=== PATIENT | male | born 1990 | race Caucasian/White ===

== ENCOUNTER 2016-10-01 14:07 | Emergency (ER) | payer SELFPAY ==
[2016-10-01] MEDS ORDERED: Ibuprofen 400 MG Tab PO ONE (14:51)
[2016-10-01 16:59] VITALS: BP 113/61
--- NOTE | 2016-10-01 16:59 | EDM.PDOC ---
ED HPI GENERAL MEDICAL PROBLEM - General Chief Complaint: ENT Problem Stated Complaint: ? STRP THROAT Time Seen by Provider: 10/01/16 14:52 Source of Information: Reports: Patient, RN Notes Reviewed History Limitations: Reports: No Limitations - History of Present Illness INITIAL COMMENTS - FREE TEXT/NARRATIVE: Patient with onset of sore throat 3 days ago with fever and chills with nausea. Positive strep contact. Location: Reports: Other (throat) Quality: Reports: Ache Severity: Severe Improves with: Reports: None Worsens with: Reports: None Associated Symptoms: Reports: No Other Symptoms Throat Pain Score (Numeric/FACES): 5 - Related Data Allergies Allergy/AdvReac Type Severity Reaction Status Date / Time No Known Allergies Allergy Verified 10/01/16 16:57 Home Meds: Home Meds . [No Known Home Meds] 07/11/14 [History] Social & Family History - Tobacco Use Smoking Status *Q: Light Tobacco Smoker Years of Tobacco use: 3 - Alcohol Use Days Per Week of Alcohol Use: 5 Number of Drinks Per Day: 3 Total Drinks Per Week: 15 - Recreational Drug Use Recreational Drug Use: No ED ROS ENT - Review of Systems Review Of Systems: ROS reveals no pertinent complaints other than HPI. ED EXAM, ENT - Physical Exam Exam: See Below Exam Limited By: No Limitations General Appearance: Alert, WD/WN, No Apparent Distress Eye Exam: Bilateral Eye: Normal Inspection Ears: Normal External Exam, Normal Canal, Hearing Grossly Normal, Normal TMs Nose: Normal Inspection, Normal Mucousa, No Blood Mouth/Throat: Other (pharyngeal erythema with mild tonsillar swelling.) Head: Atraumatic, Normocephalic Neck: Full Range of Motion, Other (Shoddy upper anterior LAD. No nuchal rigidity. ) Respiratory/Chest: No Respiratory Distress, Lungs Clear, Normal Breath Sounds, No Accessory Muscle Use, Chest Non-Tender Cardiovascular: Normal Peripheral Pulses, Regular Rate, Rhythm, No Edema, No Gallop, No JVD, No Murmur, No Rub Back: Normal Inspection, Full Range of Motion Extremities: Normal Inspection, Normal Range of Motion, Non-Tender, No Pedal Edema, Normal Capillary Refill Neurological: Alert, Oriented, CN II-XII Intact, Normal Cognition, Normal Gait, Normal Reflexes, No Motor/Sensory Deficits Psychiatric: Normal Affect, Normal Mood Skin: Warm, Dry, Intact, Normal Color, No Rash Course - Vital Signs Last Recorded V/S: Last Vital Signs Temp 36.7 C 10/01/16 15:45 Pulse 104 H 10/01/16 15:45 Resp 16 10/01/16 15:45 BP 113/61 10/01/16 15:45 Pulse Ox 100 10/01/16 15:45 - Orders/Labs/Meds Orders: Active Orders 24 hr Category Date Time Status CULTURE STREP A CONFIRMATION [RM] Stat Lab 10/01/16 14:52 Results STREP SCRN A RAPID W CULT CONF [RM] Stat Lab 10/01/16 14:52 Results Meds: Medications Discontinued Medications Generic Name Dose Route Start Last Admin Trade Name Christiano PRN Reason Stop Dose Admin Ibuprofen 400 mg 10/01/16 14:51 10/01/16 14:55 Motrin PO 10/01/16 14:52 400 mg ONETIME ONE Administration Rapid strep: Negative. Departure - Departure Time of Disposition: 17:06 Disposition: Home, Self-Care 01 Condition: Good Clinical Impression: Strep throat exposure Pharyngitis Qualifiers: Pharyngitis/tonsillitis etiology: streptococcus Qualified Code(s): J02.0 - Streptococcal pharyngitis - Discharge Information Instructions: Strep Throat, [id number] Forms: ED Department Discharge Additional Instructions: RX: Amoxicillin 500mg. RX: Decadron 4mg. RX: Phenergan 25mg. Follow up in clinic if not improved in 3 days. - My Orders Last 24 Hours: My Active Orders 10/01/16 14:52 CULTURE STREP A CONFIRMATION [RM] Stat STREP SCRN A RAPID W CULT CONF [RM] Stat - Assessment/Plan Last 24 Hours: My Active Orders 10/01/16 14:52 CULTURE STREP A CONFIRMATION [RM] Stat STREP SCRN A RAPID W CULT CONF [RM] Stat
== END 2016-10-01 17:40 | disposition home or self-care (01) ==
LOC: DL.ED 14:07
DX: J02.0 Streptococcal pharyngitis (principal); F17.210 Nicotine dependence, cigarettes, uncomplicated
CPT/HCPCS: 87081; 87430; 99283; A9270

== ENCOUNTER 2019-08-30 09:39 | Emergency (ER) | payer SELFPAY ==
[2019-08-30 09:52] VITALS: BP 131/71; PULSE 93
--- NOTE | 2019-08-30 10:12 | EDM.PDOC ---
Scribed by Vivi Gibbons 08/30/19 0954 for Gregor Orellana MD ED HPI GENERAL MEDICAL PROBLEM - General Chief Complaint: Skin Complaint Stated Complaint: SKIN RASH LEGS, TORSO, ARMS Time Seen by Provider: 08/30/19 09:45 Source of Information: Reports: Patient, RN, RN Notes Reviewed History Limitations: Reports: No Limitations - History of Present Illness INITIAL COMMENTS - FREE TEXT/NARRATIVE: Patient presents to ED by POV with complaint of rash on bilateral lower legs that started approximately 2 weeks ago. It has continued to get worse up on the trunk and bilateral upper arms. Patient has used OTC hydrocortisone cream for temporary relief of itching. Onset: Gradual Duration: Getting Worse Location: Reports: Generalized Severity: Mild Improves with: Reports: None Worsens with: Reports: None Associated Symptoms: Reports: No Other Symptoms Treatments [employer]: Reports: Other (see below) (hydrocortisone cream) - Related Data Allergies Allergy/AdvReac Type Severity Reaction Status Date / Time No Known Allergies Allergy Verified 08/30/19 09:45 Home Meds: Home Meds . [No Known Home Meds] 07/11/14 [History] Past Medical History - Past Health History Medical/Surgical History: Denies Medical/Surgical History Social & Family History - Caffeine Use Caffeine Use: Reports: Coffee ED ROS GENERAL - Review of Systems Review Of Systems: Comprehensive ROS is negative, except as noted in HPI. ED EXAM, SKIN/RASH Exam: See Below Exam Limited By: No Limitations General Appearance: Alert, WD/WN, No Apparent Distress Nose: Normal Inspection Throat/Mouth: Normal Inspection, Normal Lips, Normal Voice, No Airway Compromise Head: Atraumatic, Normocephalic Neck: Normal Inspection, Supple, Non-Tender, Full Range of Motion. No: Lymphadenopathy (L), Lymphadenopathy (R) Respiratory/Chest: No Respiratory Distress, Lungs Clear, Normal Breath Sounds, No Accessory Muscle Use, Chest Non-Tender Cardiovascular: Regular Rate, Rhythm, No Edema GI/Abdominal: Normal Bowel Sounds, Soft, Non-Tender, No Organomegaly Back Exam: Normal Inspection Extremities: Normal Range of Motion, Non-Tender, No Pedal Edema, Normal Capillary Refill Neurological: Alert, Oriented, No Motor/Sensory Deficits Psychiatric: Normal Affect, Normal Mood Skin: Warm, Dry, Rash (Patchy blanching erythematous rash to B/L lower legs with well defined borders, rough rash of tiny red dots to torso.) Course - Vital Signs Last Recorded V/S: Last Vital Signs Temp 98.4 F 08/30/19 09:52 Pulse 93 08/30/19 09:52 Resp 16 08/30/19 09:52 BP 131/71 08/30/19 09:52 Pulse Ox 100 08/30/19 09:52 - Orders/Labs/Meds Orders: Active Orders 24 hr Category Date Time Status CULTURE STREP A CONFIRMATION [RM] Stat Lab 08/30/19 09:49 Results STREP SCRN A RAPID W CULT CONF [RM] Stat Lab 08/30/19 09:49 Results Labs: Rapid strep: Negative. Departure - Departure Time of Disposition: 10:09 Disposition: Home, Self-Care 01 Condition: Good Clinical Impression: Tinea corporis Contact dermatitis Qualifiers: Contact dermatitis type: unspecified Contact dermatitis trigger: unspecified trigger Qualified Code(s): L25.9 - Unspecified contact dermatitis, unspecified cause - Discharge Information *PRESCRIPTION DRUG MONITORING PROGRAM REVIEWED*: Not Applicable *COPY OF PRESCRIPTION DRUG MONITORING REPORT IN PATIENT ELDON: Not Applicable Instructions: Contact Dermatitis, [id number], Skin Yeast Infection Forms: ED Department Discharge Additional Instructions: Rx: Diflucan 100mg Rx: Prednisone 20mg Rx: Zyrtec 10mg Keep your skin clean and dry as possible. Follow up in clinic if not improving in 3 to 4 days. Sepsis Event Note (ED) - Focused Exam Vital Signs: Vital Signs Temp Pulse Resp BP Pulse Ox 08/30/19 09:52 98.4 F 93 16 131/71 100 - My Orders Last 24 Hours: My Active Orders 08/30/19 09:49 CULTURE STREP A CONFIRMATION [RM] Stat STREP SCRN A RAPID W CULT CONF [RM] Stat - Assessment/Plan Last 24 Hours: My Active Orders 08/30/19 09:49 CULTURE STREP A CONFIRMATION [RM] Stat STREP SCRN A RAPID W CULT CONF [RM] Stat I have read and agree with the documentation that has been completed regarding this visit. By signing this record, I attest that the documentation was completed in my physical presence and is an accurate record of the encounter.
== END 2019-08-30 10:18 | disposition home or self-care (01) ==
LOC: DL.ED 09:39
DX: L25.9 Unspecified contact dermatitis, unspecified cause (principal); B35.4 Tinea corporis
CPT/HCPCS: 87081; 87430; 99283

== ENCOUNTER 2020-07-25 15:28 | Emergency (ER) | payer SELFPAY ==
[2020-07-25 15:43] VITALS: BP 122/83; PULSE 75
--- NOTE | 2020-07-25 16:01 | EDM.PDOC ---
Scribed by Vivi Gibbons 07/25/20 1548 for Gregor Orellana MD ED HPI GENERAL MEDICAL PROBLEM - General Chief Complaint: Skin Complaint Stated Complaint: SKIN RASH ON FORHEAD Time Seen by Provider: 07/25/20 15:34 Source of Information: Reports: Patient, RN, RN Notes Reviewed History Limitations: Reports: No Limitations - History of Present Illness INITIAL COMMENTS - FREE TEXT/NARRATIVE: Patient presents to ED by POV with complaints of rash to thighs and across his forehead where his hard hat runs. Treated for fungal infection in August of 2019. Did not finish coarse of medication was taking the left over pills. Onset: Gradual Duration: Getting Worse Location: Reports: Generalized Quality: Reports: Ache Severity: Moderate Improves with: Reports: None Worsens with: Reports: None Associated Symptoms: Reports: No Other Symptoms - Related Data Allergies Allergy/AdvReac Type Severity Reaction Status Date / Time No Known Allergies Allergy Verified 08/30/19 09:45 Home Meds: Home Meds . [No Known Home Meds] 07/11/14 [History] Past Medical History - Past Health History Medical/Surgical History: Denies Medical/Surgical History Social & Family History - Family History Family Medical History: No Pertinent Family History - Caffeine Use Caffeine Use: Reports: Coffee ED ROS GENERAL - Review of Systems Review Of Systems: Comprehensive ROS is negative, except as noted in HPI. ED EXAM, SKIN/RASH Exam: See Below Exam Limited By: No Limitations General Appearance: Alert, WD/WN, No Apparent Distress Ears: Normal External Exam Nose: Normal Inspection Throat/Mouth: Normal Inspection, Normal Lips, Normal Voice, No Airway Compromise Head: Atraumatic, Normocephalic Neck: Normal Inspection Respiratory/Chest: No Respiratory Distress Cardiovascular: Regular Rate, Rhythm Back Exam: Normal Inspection Extremities: Normal Inspection Neurological: Alert, Oriented, No Motor/Sensory Deficits Psychiatric: Normal Mood Skin: Warm, Dry, Intact, Normal Color, Rash (flakey erythematous rash with well defined borders, positive luminescence with perez lamp, located and skin folds, posterior thighs, collar/chest, and hat band of forehead) Course - Vital Signs Last Recorded V/S: Last Vital Signs Temp 98.1 F 07/25/20 15:39 Pulse 75 07/25/20 15:39 Resp 14 07/25/20 15:39 BP 122/83 07/25/20 15:39 Pulse Ox 100 07/25/20 15:39 Departure - Departure Time of Disposition: 16:00 Disposition: Home, Self-Care 01 Condition: Good Clinical Impression: Tinea corporis - Discharge Information *PRESCRIPTION DRUG MONITORING PROGRAM REVIEWED*: Not Applicable *COPY OF PRESCRIPTION DRUG MONITORING REPORT IN PATIENT ELDON: Not Applicable Instructions: Skin Yeast Infection Forms: ED Department Discharge Additional Instructions: Rx: Diflucan 100mg Use over the counter Lamisil Cream (or generic) to area of rash for up to 2 weeks. Follow up in clinic if not improving as expected in 2 weeks. Sepsis Event Note (ED) - Focused Exam Vital Signs: Vital Signs Temp Pulse Resp BP Pulse Ox 07/25/20 15:39 98.1 F 75 14 122/83 100 I have read and agree with the documentation that has been completed regarding this visit. By signing this record, I attest that the documentation was completed in my physical presence and is an accurate record of the encounter.
== END 2020-07-25 15:58 | disposition home or self-care (01) ==
LOC: DL.ED 15:28
DX: B35.4 Tinea corporis (principal)
CPT/HCPCS: 99282; 99283